=== PATIENT | male | born 1970 | race Caucasian/White ===

== ENCOUNTER 2019-08-10 23:23 | Emergency (ER) ==
[2019-08-10 23:50] VITALS: BP 134/89
== END 2019-08-11 02:02 | disposition left against medical advice (07) ==
LOC: ER 23:23
DX: Z53.21 Procedure and treatment not carried out due to patient leaving prior to being seen by health care provider (principal)

== ENCOUNTER 2019-08-11 20:53 | Emergency (ER) | payer BC ==
[2019-08-11] MEDS ORDERED: CLINDAMYCIN HCL 150 MG CAPSULE PO ONE (22:35)
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
[2019-08-11 22:58] VITALS: BP 128/80
== END 2019-08-11 22:56 | disposition home or self-care (01) ==
LOC: ER 20:53
DX: K04.7 Periapical abscess without sinus (principal); F17.200 Nicotine dependence, unspecified, uncomplicated
CPT/HCPCS: 99282